=== PATIENT | male | born 1995 | race Caucasian/White ===

== ENCOUNTER 2016-09-25 08:00 | Emergency (ER) | payer OTHER ==
[~2016-09-25] VITALS: Ht 175.3 cm; Wt 95.9 kg
[2016-09-25 08:02] VITALS: BP 134/83; PULSE 92; TEMP 36.5; O2SAT 97; Ht 175.3 cm; Wt 95.9 kg
[2016-09-25] MEDS ORDERED: SULF800T23 PO (08:27)
[2016-09-25] MEDS ORDERED: MICO12CR TOP (08:27)
[2016-09-25] MEDS ORDERED: AMOX875T PO (08:27)
--- NOTE | 2016-09-25 08:28 | EMERGENCY ROOM VISIT NOTE ---
ED Visit Note First contact with patient: 08:09 CHIEF COMPLAINT: Infection of the umbilicus HISTORY OF PRESENT ILLNESS: This 21-year-old male patient presents to the emergency department ambulatory after they noticed a hard, red, tender area to the umbilicus 3 days ago. It is slowly getting larger, more painful and tender. No fever, chills, or loss of appetite. There has been drainage from the area. There was no injury to the area preceding the infection. They rate the pain as mild and 4/10. They have tried nothing. The patient is not diabetic. The patient has know history of subcutaneous abscesses. REVIEW OF SYSTEMS: A 6 system review of systems was completed with positives and pertinent negatives listed in the HPI. ALLERGIES: Keflex MEDICATIONS: None PMH: None SOCIAL HISTORY: The patient lives locally with family. He does not smoke PHYSICAL EXAM: Vital Signs: Reviewed Nurse's notes, vital signs stable. GENERAL : This is a 21-year-old male, no acute distress, non toxic in appearance, well- developed well-nourished. SKIN: There is an erythematous indurated area around the umbilicus which measures about 3 cm in diameter. There is no fluctuance. There is minimal serous sanguinous drainage from the umbilicus. There is a zone of inflammation around it but no lymphangitis. Capillary refill less than 2 seconds. MUSCULOSKELETAL: There is no limitation of the range of motion of the extremities. EMERGENCY DEPARTMENT COURSE: I examined the patient. The patient appears to have an infection of the umbilicus. There is a small amount of surrounding skin cellulitis. There is drainage. There is no obvious area of fluctuance. There could potentially have been a subcutaneous abscess. This could represent a fungal infection. I do not suspect that the patient has intra-abdominal free air or that this is communicating into the abdominal cavity as he was initially concerned about. I do not feel that it needs to be incised and drained at this time as there is no area of fluctuance and it is already draining. The patient will be placed on Augmentin and Bactrim. He will also be placed on an antifungal ointment topical. He should return if symptoms are not improving in 24-48 hours. He should be rechecked by his family doctor next week if symptoms persist. The patient was discharged home in stable condition. Current/Historical Medications Scheduled Amoxicillin & Pot Clavulanate (Augmentin 875-125 mg), 1 TAB PO BID Miconazole Nitrate (Topical) (Antifungal), 1 APPLN TOP BID Sulfa/Trimethoprim (Bactrim Ds 800MG/160MG), 1 TAB PO BID Allergies Uncoded Allergies: CEPHALIXEN (Allergy, Unknown, 09/24/02) Vital Signs Date Time Temp Pulse Resp B/P Pulse Ox O2 Delivery O2 Flow Rate FiO2 09/25/16 08:02 36.5 92 18 134/83 97 Room Air Departure Information Impression Primary Impression: Cellulitis Additional Impression: Umbilicus discharge Dispostion Home / Self-Care Condition GOOD Prescriptions Miconazole Nitrate (Topical) (ANTIFUNGAL) 2 % Cre 1 APPLN TOP BID for 7 Days, #1 TUBE Prov: Katie Campos PA-C 09/25/16 Sulfa/Trimethoprim (Bactrim Ds 800MG/160MG) Tab 1 TAB PO BID for 10 Days, #20 TAB Prov: Katie Campos PA-C 09/25/16 Amoxicillin & Pot Clavulanate (Augmentin 875-125 mg) 1 Tab Tab 1 TAB PO BID for 10 Days, #20 TAB Prov: Katie Campos PA-C 09/25/16 Referrals Abdiel Vang Jr,D.O. (PCP) Patient Instructions Cellulitis - [facility], [facility] Additional Instructions Use the topical antifungal every 12 hours for 7 days Take the antibiotics as prescribed, until finished Return with any worsening pain, fevers, worsening swelling, abdominal pain Otherwise, recheck with the family doctor next week if symptoms are not improving Problem Qualifiers
== END 2016-09-25 08:32 | disposition home or self-care (01) ==
LOC: C.EDB 08:01
DX: L03.316 Cellulitis of umbilicus (principal); R19.8 Other specified symptoms and signs involving the digestive system and abdomen